=== PATIENT | female | born 1990 | race African-American/Black ===

== ENCOUNTER 2024-06-20 08:45 | Outpatient (REF) | payer OTHER, SELFPAY ==
--- OUTSIDE RECORDS SUMMARY | 2024-06-20 09:23 | XMS_ITS | Data Portability ---
Author Organization [place] - [facility], Allergy Address [address] [place] [address] Care Team Providers Care Public Health Aides Teacher Name Role Phone TRUONG JACKSON Primary Care Provider [phone] Assessment Encounter Date Assessment Date Assessment LastModified by Organization Details LastModified Time 04/04/2024 04/04/2024 Patient with persistent sore throat and mild dysphonia following a bout of laryngitis. Physical exam reveals slightly hoarse voice. Laryngoscopy demonstrates some purulent mucus draped across the nasopharynx. The right arytenoid is floppy, slightly limiting the view of the right true and false vocal folds. Recommend she complete her current course of antibiotics. Return thereafter for re-evaluation and repeat laryngoscopy if indicated. All questions were answered. For her chronic rhinorrhea, congestion, and sneezing, recommend allergy testing and return for results. In the interim, continue cetirizine and fluticasone. All questions were answered. [email or web address] Not available 04/04/2024 16:29:42 05/30/2024 05/30/2024 Fiberoptic laryngoscopy today was benign. No lesions of the larynx. She has pulmonary evaluation tomorrow for clearance to proceed with allergy testing. She has a mild inspiratory sound when she is speaking quickly which may represent some tightness of her airways. Alternative of imaging of her trachea to investigate possibility of subglottic stenosis was considered but felt to be less necessary as she is breathing comfortably at rest and has normal voice quality otherwise. When she has completed her pulmonary evaluation she will reach out through the portal to help schedule allergy testing [email or web address] Not available 05/30/2024 13:50:23 Plan of Treatment Reminders Order Date Submit Date Provider Last Modified By Organization Details Last Modified Time Details Appointments None recorded. Lab None recorded. Referral None recorded. Procedures allergy testing, skin prick (PROC) 2023 024 [email or web address] Not available 4 10:01:34 intradermal allergy skin testing (PROC) 2023 024 [email or web address] Not available 4 10:01:34 pulmonary function test procedure (PROC) 2023 024 [email or web address] Not available 4 10:01:34 pulse oximetry (PROC) 2023 [email or web address] Not available 4 10:01:34 Surgeries None recorded. Imaging None recorded. Medication Orders None recorded. Patient TargetsNo targets recorded. Patient Instructions Encounter Date Encounter Id Patient Instructions Last Modified By Organization Details Last Modified Time 05/03/2024 [id number] Nursing Documentation for Allergy Testing: Ordering Provider {{Dr. Blanca Davies* Dr. Edgar Arizmendi}} Weight:lbs:? ? ?kg: ? ? ? PFT {{Yes* no}} With Bronchodilator {{Yes* no}} approval needed to proceed with allergy testing? {{Yes* No}} {{Dr. Blanca Arizmendi*}} ok'd testing {{Yes No* Pulmonar y Clearance PCP Clearance RAST}}Hi story of Asthma:{{Yes No*}} Asthma Meds: ? ? ?Last used:? ? ? Asthma exacerbated by: ? ? ? Chance that : {{Yes No* Not Sure N/A}} Fear of needles: {{Yes No*}} Regular medications reviewed in Computer: {{Yes No*}} Medication allergies: {{Reviewed* NKDA}} Antihistamine use: {{Yes No*}} Medications used: ? ? ? Food Allergies: ? ? ? Any foods make your mouth feeling itchy: {{Yes No*}} If yes: ? ? ? History of severe reaction where had to go to ER? {{Yes No*}} If yes details: ? ? ? Type of heat in home: {{Baseboard* [employer] other }} Pets: {{Yes* No}} If yes: ? ? ?dog Smoker: {{Yes Current Never* For celia}} If former smoker-how much ? ? ? / day for how long ? ? ? When quit ? ? ? years ago Smoking now-how much ? ? ? /day for how long ? ? ? Occupation/Social History: ? ? ?works as a counselor at [employer] Symptoms having: {{Congestion* Post Nasal Drip Headache Runn y Nose Cough Other}} If other: ? ? ?sneezing, itchy eyes, post nasal drip, Frequency {{Seasonally Year Round*}} Spirometry Contraindications: Heart attack in the last 3 months: {{Yes No*}} Major surgery in last 3 months: {{Yes No*}} Detached retina(serious eye issues) in last 2 months: {{Yes No*}} Hospitilization in last month: {{Yes No*}} Proceed with PFT {{Yes* No}} approval needed: {{Yes* No}} Nursing Notes: Pt tolerated test well {{Yes No*}} Benadryl cream to test sites {{Yes No*}} Patient became syncopal-placed in supine position {{Yes No*}} Large reactions to MQT, reschedule IDT for a different date {{Yes No*}} Other: ? ? ?pt wasn't able to get allergy test due to pft Written by: {{Andra Vitale, LOW Olivier, DESTINY Holder*}} [email or web address] Not available 05/03/2024 17:36:52 Reason for Referral None Reported. Results Created Date Observation Date Name Description Value Unit Range Abnormal Flag Note LastModifiedBy Organization Detail LastModifiedTime 05/03/19 25 lisandro metry testi ng* No observ ation record ed. [email or web address] Not Available 11/2024 11:57:47 05/09/19 25 05/09/2024 lisandro metry testi ng* No observ ation record ed. [email or web address] Allergy [address] [address], [place], [address], 05/10/2024 14:54:56 Result Notes None recorded. Problems Name Problem SNOMED Code Status Onset Date Resolution Date Notes Provider Name and Address Organization Details Recorded Time Chronic rhinitis 42840875 Active 2023 GUIDO BRODERICK-C [address] [facility],[address], [place], [address], [facility] - [facility] 4 11:35:38 Non-allergi c rhinitis 619857552589 Active 2023 CHERI BLACKWOOD GUIDO-C [address] [place] [address],[place] [address], [place], [address], [facility] - [facility] 4 11:35:44 Allergic rhinitis 61532593 Active 2023 GUIDO BRODERICK-C [address] [place] [address],[place] [address], [place], [address], [facility] - [facility] 4 11:35:44 Seasonal allergic rhinitis 608541041 Active 2023 GUIDO BRODERICK-C [address] [place] [address],[place] [address], [place], [address], [facility] - [facility] 4 11:35:44 Dysphonia 54203183 Active 2023 GUIDO BRODERICK-C [address] [place] [address],[place] [address], [place], [address], [facility] - [facility] 4 16:24:56 Chronic cough 36551528 Active 2024 HAMMAD HARPER MD [address] [place] [address],[place] [address], [place], [address], [facility] - [facility] 5 12:48:16 Problem Notes None recorded. Procedures Surgical History Date Name Laterality Status Provider Name and Address Organization Details Recorded Time 05/30/19 25 FOL_DP completed HAMMAD HARPER MD [address] [place] [address],[place] [address], [place], [address], [place] - [facility] 05/08/2024 13:42:03 04/04/20 24 Fiberoptic Laryngoscopy (Comprehensive) completed CHERI BLACKWOOD PA-C [address] [facility], [place], [address], [facility] - [facility] 04/04/2024 16:27:00 Imaging Results Imaging Date Name Status LastModified by Organiz ation Details LastModified Time 05/03/2024 spirometry testing* completed [email or web address] Information not available 05/03/2024 11:57:47 05/09/2024 spirometry testing* completed [email or web address] Allergy [address] [facility] [address], [place], [address], 05/10/2024 14:54:56 Procedure Notes None recorded. Medical Equipment None Reported. Allergies No known drug allergies Medications Name Sig Start Date Stop Date Status Note LastModified by Organization Details LastModified Time azithromyci n 250 mg tablet 05/03 completed Not Available Not Available Not Available benzonatate 200 mg capsule TAKE ONE CAPSULE BY MOUTH EVERY 8 HOURS NEEDED 05/03 completed Not Available Not Available Not Available prednisone 20 mg tablet TAKE 2 TABLETS BY MOUTH DAILY FOR 3 DAYS, THEN TAKE 1 TABLET DAILY BY MOUTH UNTIL FINISHED 05/03 completed Not Available Not Available Not Available doxycycline monohydrate 100 mg capsule 05/03 completed Not Available Not Available Not Available codeine 10 mg-guaifene sin 100 mg/5 mL oral liquid 05/03 completed Not Available Not Available Not Available albuterol sulfate HFA 90 mcg/actuati on aerosol inhaler INHALE 2 PUFFS USING INHALER EVERY 4 HOURS NEEDED; IF NEEDED SOONER, USE IT & SEE MD. active Not Available Not Available No t Available Paxlovid 300 mg (150 mg x 2)-100 mg tablets in a dose pack TAKE 2 NIRMATREL VIR TABLETS AND 1 RITONAVIR TABLET TOGETHER TWICE A DAY FOR 5 DAYS. 05/03 completed Not Available Not Available Not Available Vitals Date Recorded Body height Body mass index (BMI) Body weight Provider Name and Address Organization Details Last Updated DateTime 04/04/2024 157.48 cm 39.3 kg/m2 25342.36 g Georgia Quiñones [place] - [facility] 04/04/2024 11:01:45 Date Recorded Body height Body mass index (BMI) Body weight Oxygen saturation Oxygen saturation in Arterial blood by Pulse oximetry Systolic blood pressure Diastolic blood pressure Provider Name and Address Organization Details Last Updated DateTime 157.48 cm 39.3 kg/m2 33432.3 6 g 98 % 98 % 147 mm[Hg] 97 mm[Hg] DESTINY LUA [address] [place] [address], [address], [place] - [facility] 10:54:49 Date Recorded Body height Body mass index (BMI) Body weight Provider Name and Address Organization Details Last Updated DateTime 05/30/2024 157.48 cm 39.3 kg/m2 97136.36 g Rola Pamela [facility] 05/30/2024 13:30:53 Social History None recorded. Functional Status None recorded. Mental Status None recorded. Family History Relationship Description Onset Age of this Age Resolved Age Notes LastModified by Organization Details LastModified Time Father Allergy [email or web address] Not available 0 05/08/2024 13:35:28 Father Allergy to food [email or web address] Not available 2024 13:35:28 Medical History Condition Response Allergies/Hayfever Y Heart Problems N Anxiety N Tonsil Infections N Emphysema N Migraines N Thyroid Problems N Developmental Delay N COPD N Depression N Glaucoma N Nasal or Sinus Problems Y Anemia N Immune System Disorder N Anesthesia Complications N Heart Attack (AL) N Other Skin Condition N Diabetes N Rhinitis N Bleeding Disorder N Food Allergy N Arthritis N Hearing Loss N Hyperlipidemia N Cancer N Eczema N Stroke N Dementia N Nasal polyps N Asthma N Sleep Disorder N GERD/Reflux N High Cholesterol N Liver Disease N Headaches N Fibromyalgia N Hypertension N Speech Delay N Kidney Disease N Gynecological HistoryNo gynecological history recorded. Obstetrics History GPAL:G 0 P 0 0 0 0 Past Encounters Encounter ID Performer Location Encounter Start Date Encounter Closed Date Diagnosis/Indication Diagnosis SNOMED-CT Code Diagnosis ICD10 Code Diagnosis Note [id number] CHERI BLACKWOOD PA-C [facility] [address] [place] [address] 04/04/2024 10:48:08 04/04/2024 11:40:41 Chronic rhinitis 27056251 J31.0 Dysphonia 81176448 R49.9 [id number] DESTINY LUA [facility] 100 [facility] [address] [place], [place] [address] 05/03/2024 10:28:03 05/03/2024 17:38:58 Allergic rhinitis 45034963 J30.9 [id number] HAMMAD HARPER MD [facility] [address] [facility] [place] [address] 05/30/2024 13:19:01 05/30/2024 13:49:30 Chronic rhinitis 29913180 J31.0 Dysphonia 61414144 R49.9 Health Concerns Section Related Observation LastModified by Organization Detai ls LastModified Time None Recorded Concern Status LastModified by Organization Details LastModified Time None Recorded Advance Directives Directive None Recorded Payers Encounter Date Sequence Insurance Name Policy Number Policy Rebollar Covered Member ID Rebollar Member ID Guarantor Name 04/04/2024 1 [facility] [id number] 1 Karina I Zacarias Perez [id number] [place] Zacarias Perez 05/03/2024 1 [facility] [id number] 1 Karina I Zacarias Perez [id number] [place] Zacarias Perez 05/30/2024 1 [facility] [id number] 1 Karina I Zacarias Perez [id number] [place] Zacarias Perez Notes Date Note Type Note Provider Name and Address Organization Details Recorded Time 04/04/2024 text/html 33 year old rena do presents for evaluation of nose and throat. Reports she has known environmental allergies, last diagnosed about a decade ago. Had allergy testing positive for many triggers, most of which she does not remember. Pet dander, dust mites, several plant allergens. She has postnasal drip and rhinorrhea. Takes cetirizine as needed and fluticasone sometimes. Never underwent immunotherapy. Also concerned about her throat. States 4-5 weeks ago she developed laryngitis; voice was completely out for a week. Had a bad cough that persisted for some time thereafter. When her voice came back, she developed a sore throat. Seney like there was one area that was worse than the rest, felt like ground glass when she swallowed. She had difficulty swallowing cold fluids. She was diagnosed with mycoplasma and given antibiotics. She made a full recovery in every other aspect but still feels like there is a patch in the throat that is abnormal. Feels like there is more phlegm than there used to be. She is currently undergoing another course of antibiotics. Currently no sore throat, voice is mostly normal, no dysphagia. No history of tobacco use or heavy alcohol intake. CHERI BLACKWOOD PA-C [address] [facility],[address], [address], [facility] - [facility] 04/04/2024 16:30:26 05/30/2024 text/html larynx re-evalha s pulm clearance prior to allergy testing - scheduled for tomorrowcough is improved in past weekon prilosec trial but no GERD sxgets winded when walking up stairs 04/04/24 Cheri - allergies - rx testing. cetirizine, fluticasone PRNcough and laryngitis in Nov, mycoplasma infection rx abx but phlegm persists.FOL - The right arytenoid is floppy, slightly limiting the view of the right true and false vocal folds. work - therapist at [employer] HAMMAD HARPER MD [address] [facility],[place] [address], [place], [address], [facility] - [facility] 05/30/2024 13:50:37 OBGyn Episode No OBEpisode recorded.
--- OUTSIDE RECORDS SUMMARY | 2024-06-20 09:23 | XMS_ITS | Continuity of Care Document ---
Author Organization [place] - [facility], [facility] Address [address] [place] [address] Care Team Providers Care Network Operations Lead Name Role Phone TRUONG JACKSON Primary Care Provider Assessment Encounter Date Assessment Date Assessment LastModified by Organization Details LastModified Time 05/30/2024 05/30/2024 Fiberoptic laryngoscopy today was benign. [...] the portal to help schedule allergy testing [email or web address] Not available 05/30/2024 13:50:23 Plan of Treatment Reminders Order Date Submit Date Provider Last Modified By Organization Details Last Modified Time Details Appointments None record ed. Lab None record ed. Referral None record ed. Procedures None record ed. Surgeries None record ed. Imaging None record ed. Medication Orders None record ed. Patient TargetsNo targets recorded. Patient InstructionsNo instructions recorded. Reason for Referral None Reported. Results Created Date Observation Date Name Description Value Unit Range Abnormal Flag Note LastModifiedBy Organization Detail LastModifiedTime 05/03/19 lisandro metry testi ng* No observ ation record ed. [email or web address] Not Available 11/2024 11:57:47 05/09/19 25 05/09/2024 lisandro metry testi ng* No observ ation record ed. [email or web address] Allergy 100 [facility], [place], [address], 05/10/2024 14:54:56 Result Notes None recorded. Problems Name Problem SNOMED Code Status Onset Date Resolution Date Notes Provider Name and Address Organization Details Recorded Time Chronic rhinitis 62122304 Active 2023 GUIDO BRODERICK-C [address] [place] [address],[place] [address], [place], [address], [facility] - [facility] [place] 4 11:35:38 Non-allergi c rhinitis 290803067928 Active 2023 VENU BLACKWOOD PA-C [address] [place] [address],[place] [address], [place], [address], [facility] - [facility] [place] 4 11:35:44 Allergic rhinitis 87202160 Active 2023 GUIDO BRODERICK-C [address] [place] [address],[place] [address], [place], [address], [facility] - [facility] [place] 4 11:35:44 Seasonal allergic rhinitis 959852801 Active 2023 GUIDO BRODERICK-C [address] [place] [address],[place] [address], [place], [address], [facility] - [facility] [place] 4 11:35:44 Dysphonia 02295379 Active 2023 GUIDO BRODERICK-C [address] [place] [address],[place] [address], [place], [address], [facility] - [facility] [place] 4 16:24:56 Chronic cough 83300582 Active 2024 HAMMAD HARPER MD [address] [place] [address], [address], [facility] - [facility] [place] 5 12:48:16 Problem Notes None recorded. Procedures Surgical History Date Name Laterality Status Provider Name and Address Organization Details Recorded Time 05/30/19 25 FOL_DP completed HAMMAD HARPER MD [address] [place] [address],[address], [place], [address], [place] - [facility] 05/08/2024 13:42:03 04/04/20 24 Fiberoptic Laryngoscopy (Comprehensive) completed VENU BLACKWOOD PA-C [address] [place],[address], [place], [address], [place] - [facility] 04/04/2024 16:27:00 Imaging Results None recorded. Procedure Notes None recorded. Medical Equipment None [...] Updated DateTime 05/30/2024 157.48 cm 39.3 kg/m2 56731.36 g Rola Santiago [place] - [facility] 05/30/2024 13:30:53 Social History None recorded. Functional [...] Emphysema N Migraines N Thyroid Problems N Glaucoma N Depression N COPD N Developmental Delay N Nasal or Sinus Problems Y Anemia N Immune System Disorder N Anesthesia Complications N Heart Attack ([place]) N Other Skin Condition N Diabetes N [...] SNOMED-CT Code Diagnosis ICD10 Code Diagnosis Note [id number] YOLANDA CASTILLO [facility] 100 [facility] 100 [place] [address] 05/03/2024 10:28:03 05/03/2024 17:38:58 Allergic rhinitis 76425103 J30.9 [id number] HAMMAD HARPER MD [facility] of [address] [address] 05/30/2024 13:19:01 05/30/2024 13:49:30 Chronic rhinitis 01986856 J31.0 Dysphonia 81995988 R49.9 Health Concerns Section Related Observation LastModified by Organization Detai ls LastModified Time None Recorded Concern Status LastModified by Organization Details LastModified Time None Recorded Payers Encounter Date Sequence Insurance Name Policy Number Policy Rebollar Covered Member ID Rebollar Member ID Guarantor Name 05/30/[address] [place] [address] [id number] Karina Perez [id number] Karina Perez Notes Date Note Type Note Provider Name and Address Organization Details Recorded Time 05/30/2024 text/html larynx re-evalha s pulm clearance prior to allergy testing - scheduled for tomorrowcough is improved in past weekon prilosec trial but no GERD sxgets winded when walking up stairs [place] 04/04/24 Venu - allergies - rx testing. cetirizine, fluticasone PRNcough and laryngitis in Nov, mycoplasma infection rx abx but phlegm persists.FOL - The right arytenoid is floppy, slightly limiting the view of the right true and false vocal folds. 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
== END 2024-06-20 08:46 | disposition home or self-care (01) ==
LOC: CF 08:45
DX: Z13.89 Encounter for screening for other disorder (principal)

== ENCOUNTER 2024-07-06 07:55 | Outpatient (REF) | payer OTHER, SELFPAY ==
--- NOTE | 2024-07-06 08:01 | PFT_ITS ---
Flows: FEV1: 98 % of predicted at 2.48 L FVC: 92 % of predicted at 2.76 L FEV1/FVC: 90 % Bronchodilator response: Absent Volumes: Total lung capacity: 73 % of predicted at 3.55 L Residual volume: 70 % of predicted at 0.79 L Slow vital capacity: 74 % of predicted at 2.77 L Expiratory reserve volume: 48 % of predicted at 0.56 L Diffusion capacity: Normal Impression: Mild restrictive ventilatory defect with no bronchodilator response. Decreased expiratory reserve volume suggests extrathoracic restriction likely secondary to abdominal obesity. MTDD
[2024-07-06 08:49] VITALS: PULSE 74
== END 2024-07-06 07:56 | disposition home or self-care (01) ==
LOC: HO.RESP 07:55
PROVIDERS: PCP Internal Medicine; Visit Provider Nurse Practitioner Family
DX: J45.909 Unspecified asthma, uncomplicated (principal)
CPT/HCPCS: 94010; 94640; 94727; 94729

== ENCOUNTER → 2024-07-06 08:01 | Outpatient (BNV) | payer OTHER, SELFPAY | PROVIDERS: PCP Internal Medicine; Visit Provider Internal Medicine Pulmonary Disease | DX: J45.909 Unspecified asthma, uncomplicated (principal) | CPT/HCPCS: 94060; 94727; 94729 ==

== ENCOUNTER → 2024-07-25 09:17 | Outpatient (AMB) | payer OTHER, SELFPAY ==
--- NOTE | 2024-07-25 09:19 | A.OFFVIS_ITS ---
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 She was referred by general utility machine operator for pulmonary evaluation after recent spirometry revealed mild restrictive defect. Today she presents to review PFT. She continues with dry cough occasionally with post nasal drip and denies dyspnea on exertion, chest tightness or wheezing. She has been using albuterol MDI on a nightly basis with good effect and using Flonase intermittently for PND. We previously discussed symptoms could be related to reflux however she d/c Prilosec as she felt no improvement. Currently denies any reflux symptoms. She is under the care of Dr Orozco, general utility machine operator, as prior RAST revealed multiple environmental allergens and is scheduled for SPT in the near future. [facility], [facility] Social History Patient Tobacco Use Status: Never used Tobacco Review of Systems Const Denies chills, Denies excessive sweating, Denies fever(s), Denies headache(s) and Denies night sweats Eyes Denies dry eyes and Denies irritation ENT Reports Normal hearing present and Denies headache(s) Card Denies chest pain, Denies chest pain at rest, Denies chest pain with activity, Denies claudication, Denies leg edema, Denies dyspnea on exertion, Denies orthopnea and Denies paroxysmal nocturnal dyspnea Resp Denies change in phlegm color, Denies chest congestion, Reports cough, Denies hemoptysis, Denies excessive phlegm production, Denies pain on inspiration, Denies pain with cough, Denies dyspnea on exertion, Denies stridor and Denies wheezing Musc Denies myalgias Neuro Reports Normal hearing present and Denies headache(s) Endo Denies excessive sweating Wili/Lymph Denies lymphadenopathy Aller/Immun Reports seasonal rhinorrhea and Denies wheezing Physical Exam Vital Signs: Last Vital Signs Pulse 88 07/25/24 09:20 BP 120/64 07/25/24 09:20 Pulse Ox 99 07/25/24 09:20 Oxygen Delivery Method Room Air 07/25/24 09:20 BMI result Body Mass Index 43.9 Const General: cooperative, healthy appearing, comfortable, no acute distress, well developed and alert Nutritional Appearance: obese Orientation/consciousness: patient oriented x3 Limitations: no limitations HEENT Head: Yes normal to inspection, Yes normocephalic and Yes atraumatic Ears: hearing grossly normal bilaterally and external ears normal Eyes General: appearance normal, both eyes and all related structures Eyelids: Yes eyelids normal Sclerae: sclerae normal EOM: EOMs intact bilaterally Neck Neck: Yes normal visual inspection and Yes no lymphadenopathy Lymphatic: no lymphadenopathy noted Chest Chest palpation & inspection: normal inspection of the chest Resp Effort & Inspection: normal respiratory effort, able to speak in complete sentences, no audible wheezes, no cough, no stridor, not tachypneic, no tripod positioning and no use of accessory muscles Auscultation: clear to auscultation bilaterally Cardio Jugular venous distension: no JVD Rate: regular rate Rhythm: regular rhythm Skin Other: warm, dry General skin exam: no rashes or lesions noted Neuro General: patient oriented x3 Cranial nerves: Yes Normal hearing present Cognition (Neuro): normal cognition Gait exam (Neuro): Normal gait present Extrem General: Yes normal to inspection, Yes capillary refill normal, Yes no clubbing, cyanosis or edema and Yes no pedal edema Psych Appearance: grossly normal and well kempt Speech and movement: Normal speech and movement present and Clear speech present Affect: normal affect Attitude: cooperative Thought process: Normal thought process present Thought content: Normal thought content present Insight: Good insight present (Psych) Judgement: Good judgement present (Psych) Assessment & Plan Assessment & Plan (1) Asthma: Code(s): J45.909 - Unspecified asthma, uncomplicated Category: Medical (2) Chronic allergic rhinitis: Code(s): J30.9 - Allergic rhinitis, unspecified Category: Medical (3) GERD (gastroesophageal reflux disease): Code(s): K21.9 - Gastro-esophageal reflux disease without esophagitis Category: Medical Plan Reviewed PFT which revealed mild restrictive ventilatory defect with no bronchodilator response, except in small to medium airways. Decreased expiratory reserve volume suggests extrathoracic restriction likely secondary to abdominal obesity. Importance of weight loss discussed. PFTs appear to be consistent with a history of asthma. Although, if a definitive diagnosis is warranted a methacholine challenge may be helpful in assessing hyperreactive airways disease. Will send for methacholine. During PFT patient noted difficulties with prolonged exahalation due to persistent dry cough and significant benefitted from nebulized albuterol repeating spirometry with no difficulties, revealed in 22% improvement in small to medium airways. All questions were answered and patient is in agreement of plan. Will follow up in 6-8 weeks or sooner if needed. Orders: Orders RT pft w methacholine Today J45.909 - Unspecified asthma, uncomplicated Medications: New fluticasone furoate-vilanterol 100-25 mcg/dose (Breo Ellipta) 1 inh inhalation DAILY 60 ea 3RF Coding Level of Care Code Est Pt Level 4 (49197) Diagnoses Asthma J45.909 Chronic allergic rhinitis J30.9 GERD (gastroesophageal reflux disease) K21.9
[2024-07-25 09:20] VITALS: BP 120/64; PULSE 88; O2SAT 99; BMI 43.9
--- OUTSIDE RECORDS SUMMARY | 2024-07-25 10:20 | XMS_ITS | Data Portability ---
Author Organization [place] - [facility], Allergy Address [address] [place] [address] Care Team Providers Care Cotton Sampler Name Role Phone TRUONG JACKSON Primary Care [...] By Organization Details Last Modified Time 05/03/2024 [id number] Nursing Documentation for Allergy Testing: Ordering Provider [...] ? ? ?works as a counselor at [employer] Symptoms having: {{Congestion* Post Nasal Drip Headache [...] by: {{Andra Vitale, LOW Olivier, DESTINY Holder*}} [email or web address] Not available 05/03/2024 17:36:52 Reason for Referral None Reported. Results Created Date Observation Date Name Description Value Unit Range Abnormal Flag Note LastModifiedBy Organization Detail LastModifiedTime 05/03/19 25 lisandro metry testi ng* No observ ation record ed. [email or web address] Not Available 11/2024 11:57:47 05/09/19 25 05/09/2024 lisandro metry testi ng* No observ ation record ed. [email or web address] Allergy [address] [address], [place], [address], 05/10/2024 14:54:56 Result Notes None recorded. Problems Name Problem SNOMED Code Status Onset Date Resolution Date Notes Provider Name and Address Organization Details Recorded Time Chronic rhinitis 42583308 Active 2023 GUIDO BRODERICK-C [address] [facility],[address], [facility] [place], [address], [facility] - [facility] 4 11:35:38 Non-allergi c rhinitis 967744016798 Active 2023 CHERI BLACKWOOD GUIDO-C [address] [place] [address],[place] [address], [facility] [place], [address], [facility] - [facility] 4 11:35:44 Allergic rhinitis 04777729 Active 2023 GUIDO BRODERICK-C [address] [place] [address],[place] [address], [facility] [place], [address], [facility] - [facility] 4 11:35:44 Seasonal allergic rhinitis 668448243 Active 2023 GUIDO BRODERICK-C [address] [place] [address],[place] [address], [facility] [place], [address], [facility] - [facility] 4 11:35:44 Dysphonia 44332890 Active 2023 GUIDO BRODERICK-C [address] [place] [address],[place] [address], [facility] [place], [address], [facility] - [facility] 4 16:24:56 Chronic cough 48041185 Active 2024 HAMMDA HARPER MD [address] [place] [address],[place] [address], [facility] [place], [address], [facility] - [facility] 5 12:48:16 Problem Notes None recorded. Procedures Surgical History Date Name Laterality Status Provider Name and Address Organization Details Recorded Time 05/30/19 25 FOL_DP completed HAMMAD HARPER MD [address] [place] [address],[place] [address], [place], [address], [place] - [facility] 05/08/2024 13:42:03 04/04/20 24 Fiberoptic Laryngoscopy (Comprehensive) completed CHERI BLACKWOOD PA-C [address] [facility], [place], [address], [facility] - [facility] 04/04/2024 16:27:00 Imaging Results Imaging Date Name Status LastModified by Organiz ation Details LastModified Time 05/03/2024 spirometry testing* completed [email or web address] Information not available 05/03/2024 11:57:47 05/09/2024 spirometry testing* completed [email or web address] [facility] [address] [facility] [address], [place], [address], 05/10/2024 14:54:56 Procedure Notes None recorded. Medical [...] Updated DateTime 04/04/2024 157.48 cm 39.3 kg/m2 49988.36 g Georgia Quiñones [place] - [facility] 04/04/2024 11:01:45 Date Recorded Body height Body mass index (BMI) Body weight Oxygen saturation Oxygen saturation in Arterial blood by Pulse oximetry Systolic blood pressure Diastolic blood pressure Provider Name and Address Organization Details Last Updated DateTime 157.48 cm 39.3 kg/m2 55363.3 6 g 98 % 98 % 147 mm[Hg] 97 mm[Hg] DESTINY LUA [address] [place] [address], [address], [place] - [facility] 10:54:49 Date Recorded Body height Body mass index (BMI) Body weight Provider Name and Address Organization Details Last Updated DateTime 05/30/2024 157.48 cm 39.3 kg/m2 67742.36 g Rola Pamela [facility] 05/30/2024 13:30:53 Social History None recorded. Functional Status None recorded. Mental Status None recorded. Family History Relationship Description Onset Age of this Age Resolved Age Notes LastModified by Organization Details LastModified Time Father Allergy [email or web address] Not available 0 05/08/2024 13:35:28 Father Allergy to food [email or web address] Not available 2024 13:35:28 Medical History Condition Response Tonsil Infections N Emphysema N Glaucoma N Depression N COPD N Nasal or Sinus Problems Y Anesthesia Complications N Arthritis N Hearing Loss N Cancer N Stroke N High Cholesterol N Liver Disease N Headaches N Fibromyalgia N Speech Delay N Kidney Disease N Allergies/Hayfever Y Heart Problems N Anxiety N Migraines N Thyroid Problems N Developmental Delay N Anemia N Immune System Disorder N Heart Attack (HI) N Other Skin Condition N Diabetes N Rhinitis N Bleeding Disorder N Food Allergy N Hyperlipidemia N Eczema N Dementia N Nasal polyps N Asthma N Sleep Disorder N GERD/Reflux N Hypertension N Gynecological HistoryNo gynecological history recorded. Obstetrics History GPAL:G 0 P 0 0 0 0 Past Encounters Encounter ID Performer Location Encounter Start Date Encounter Closed Date Diagnosis/Indication Diagnosis SNOMED-CT Code Diagnosis ICD10 Code Diagnosis Note [id number] CHERI BLACKWOOD PA-C [facility] [address] [place] [address] 04/04/2024 10:48:08 04/04/2024 11:40:41 Chronic rhinitis 29612567 J31.0 Dysphonia 84954245 R49.9 [id number] DESTINY LUA [facility] [address] [facility] [address] [place], [place] [address] 05/03/2024 10:28:03 05/03/2024 17:38:58 Allergic rhinitis 81624502 J30.9 [id number] HAMMAD HARPER MD [facility] [address] [facility] [place] [address] 05/30/2024 13:19:01 05/30/2024 13:49:30 Chronic rhinitis 74728428 J31.0 Dysphonia 61847242 R49.9 Health Concerns Section Related Observation LastModified by Organization Detai ls LastModified Time None Recorded Concern Status LastModified by Organization Details LastModified Time None Recorded Advance Directives Directive None Recorded Payers Encounter Date Sequence Insurance Name Policy Number Policy Rebollar Covered Member ID Rebollar Member ID Guarantor Name 04/04/2024 1 [facility] [id number] 1 Karina I Zacarias Perez [id number] [place] Zacarias Perez 05/03/2024 1 [facility] [id number] 1 [place] I Zacarias Perez [id number] Karina Zacarias Perez 05/30/2024 1 [facility] [id number] 1 [place] I Zacarias Perez [id number] Karina Zacarias Perez Notes Date Note Type Note [...] came back, she developed a sore throat. [place] like there was one area that was [...] heavy alcohol intake. CHERI BLACKWOOD PA-C [address] [facility],[address], [address], [facility] - [facility] 04/04/2024 16:30:26 05/30/2024 text/html larynx re-evalha s [...] false vocal folds. work - therapist at [employer] HAMMAD HARPER MD [address] [facility],[address] [address], [place], [address], [facility] - [facility] 05/30/2024 13:50:37 OBGyn Episode No OBEpisode recorded.
== END ==
LOC: HO.HPSW 09:17
PROVIDERS: PCP Internal Medicine; Visit Provider Nurse Practitioner Family
DX: J45.909 Unspecified asthma, uncomplicated (principal); J30.9 Allergic rhinitis, unspecified; K21.9 Gastro-esophageal reflux disease without esophagitis
CPT/HCPCS: 99214